=== PATIENT | male | born 1965 | race Caucasian/White ===

== ENCOUNTER 2018-06-15 00:55 | Emergency (ER) | payer SELFPAY ==
[~2018-06-15] VITALS: Ht 165.1 cm; Wt 74.5 kg
[2018-06-15] MEDS ORDERED: SODIUM CHLORIDE 0.9% 1,000 ML IV ONE (01:50)
[2018-06-15] MEDS ORDERED: ONDANSETRON HCL 4MG/2ML VIAL IV STA (01:50)
[2018-06-15] MEDS ORDERED: FAMOTIDINE 20MG/2ML VIAL IV STA (01:50)
[2018-06-15 02:45] VITALS: BP 135/75
[2018-06-15 03:13] LABS: BASOPHILS % 0.4 % (0.0-2.0); EOSINOPHILS % 0.6 % (0.0-5.0); HEMATOCRIT. 40.1 % (42.0-52.0); HEMOGLOBIN. 14.1 g/dL (14.0-18.0); LYMPHOCYTES % 54.9 % (20.0-50.0); MEAN CORPUSCULAR HEMOGLOBIN 31.5 pg (28.0-32.0); MEAN CORPUSCULAR VOLUME 89.4 fL (80.0-94.0); MEAN PLATELET VOLUME 8.8 fl (7.4-10.4); MONOCYTES % 7.3 % (2.0-8.0); NEUTROPHILS % 36.8 % (40.0-76.0); PLATELET 136 x1000/uL (130-400); RED BLOOD CELL COUNT 4.48 mill/uL (4.7-6.1); RED CELL DISTRIBUTION WIDTH 12.5 % (11.6-14.6)
[2018-06-15 03:22] LABS: CHLORIDE 104 mEq/L (98-107); PROTHROMBIN TIME 10.4 sec (9.4-11.6)
[2018-06-15 03:27] LABS: ETHANOL BLOOD 283 mg/dL
[2018-06-15 03:31] LABS: BETA HYDROXYBUTYRATE 0.2 mMol/L (0.0-0.3)
== END 2018-06-15 03:43 | disposition left against medical advice (07) ==
LOC: ER 00:55
DX: F10.229 Alcohol dependence with intoxication, unspecified (principal); R10.32 Left lower quadrant pain; E11.65 Type 2 diabetes mellitus with hyperglycemia; E87.6 Hypokalemia; E87.2 Acidosis; I10 Essential (primary) hypertension; F17.200 Nicotine dependence, unspecified, uncomplicated; R47.81 Slurred speech; Y90.8 Blood alcohol level of 240 mg/100 ml or more
CPT/HCPCS: 36415; 71045; 80053; 82010; 83605; 83690; 84484; 85025; 85610; 99285; G0482; J2405; J3490; J7030